=== PATIENT | male | born 1985 | race American Indian/Alaskan Native ===

== ENCOUNTER 2017-11-20 19:08 | Emergency (ER) | payer OTHER ==
[2017-11-20] MEDS ORDERED: TYLENOL ONE (19:21)
[2017-11-20 19:27] VITALS: BP 123/76
[2017-11-20] MEDS ORDERED: MOTRIN PO ONE (22:10)
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
[2017-11-21] MEDS ORDERED: NORCO 7.5/325 PO ONE (00:20)
[2017-11-21] MEDS ORDERED: NORCO 7.5/325 ONE (00:20)
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
== END 2017-11-21 03:15 | disposition home or self-care (01) ==
LOC: ED 19:08
DX: R07.89 Other chest pain (principal); M25.512 Pain in left shoulder; R10.13 Epigastric pain; Z72.0 Tobacco use; V49.19XA Passenger injured in collision with other motor vehicles in nontraffic accident, initial encounter; Y93.89 Activity, other specified; Y99.8 Other external cause status; Y92.488 Other paved roadways as the place of occurrence of the external cause
CPT/HCPCS: 36415; 71275; 74177; 82565; 99284; Q9967